=== PATIENT | female | born 1990 | race Caucasian/White ===

== ENCOUNTER 2018-01-25 20:48 | Emergency (ER) | payer OTHER ==
[~2018-01-25] VITALS: Ht 152.4 cm; Wt 63.5 kg
[2018-01-25 20:58] VITALS: BP 137/85
[2018-01-25] MEDS ORDERED: MEDROL4 M2 PO (21:50)
[2018-01-25] MEDS ORDERED: BACTRIM DS TAB1 EACH PO (21:50)
--- NOTE | 2018-01-25 21:52 | ED GENERAL ADULT ---
History of Present Illness General Chief Complaint: Animal/Insect Bite Stated Complaint: "STUNG BY HORNETS YESTERDAY.FEELS WORSE" PER PT Source: patient Exam Limitations: no limitations Vital Signs & Intake/Output Vital Signs & Intake/Output Vital Signs Date Time Temp Pulse Resp B/P B/P Pulse O2 O2 Flow FiO2 Mean Ox Delivery Rate 01/25 2058 98.9 96 18 137/85 99 Room Air ED Intake and Output 01/26 0000 01/25 1200 Intake Total Output Total Balance Patient 140 lb Weight Weight Reported by Patient Measurement Method Allergies Coded Allergies: Penicillins (RASH PER PT 01/25/18) amoxicillin (RASH PER PT 01/25/18) cephalexin (RASH PER PT 01/25/18) Reconcile Medications Methylprednisolone. (Medrol) 4 MG TAB.DS.PK 1 DP PO AD swelling 6 on day 1 then reduce by one tablet daily until gone Sulfamethoxazole/Trimethoprim (Bactrim Ds Tablet) 800 MG-160 MG TABLET 1 TAB PO BID cellulitis Triage Note: PT FROM HOME C/O STUNG BY HORNETS YESTERDAY AROUND 1030. PT STATES SHE WAS STUNG BY 2 "BALD FACE" HORNETS YESTERDAY IN HER LEFT ELBOW. PT STATES SHE HAS ICED, ALOE AND BENADRYL WITHOUT RELIEF. PT STATES NOW IT IS BECOMING RED, WARM TO TOUCH, AND UNABLE TO BEND ELBOW. VSS. Triage Nurses Notes Reviewed? yes : No Patient currently breastfeeds: No HPI: Patient is a healthy 27-year-old female who suffered several stings from what she believes to have been hornets earlier today to her left elbow. She took diphenhydramine at home without improvement in her symptoms. She comes to the emergency department this evening because she has noted increased swelling and tenderness about her left elbow. She has no fever, chills, or other constitutional symptoms. Past History Travel History Traveled to [place] past 21 day No Medical History Any Pertinent Medical History? see below for history Psychiatric: insomnia, RECOVERY OPIATES Surgical History Surgical History: none Psychosocial History What is your primary language Wolof Tobacco Use: Current Daily Use Daily Tobacco Use Amount/Type: => 5 Cigarettes daily ETOH Use: occasional use Illicit Drug Use: denies illicit drug use Family History Hx Contributory? No Review of Systems Review of Systems Constitutional: Denies: chills, diaphoresis, fever, malaise, weakness. EENTM: Reports: no symptoms. Respiratory: Reports: no symptoms. Cardiovascular: Reports: no symptoms. GI: Reports: no symptoms. Genitourinary: Reports: no symptoms. Musculoskeletal: Reports: joint pain, joint swelling. Skin: Reports: see HPI, change in skin color, erythema, lesions, rash. Neurological/Psychological: Reports: no symptoms. Hematologic/Endocrine: Reports: no symptoms. Immunologic/Allergic: Reports: no symptoms. All Other Systems: Reviewed and Negative Physical Exam Physical Exam General Appearance: well developed/nourished Comments: HEENT: Inspection of the head reveals a normocephalic cranium with no signs of trauma. Ophtho: Extraocular muscles are intact. The sclera are noninjected, and there is no obvious discharge. Neck: No signs of trauma or asymmetry to the neck. Respiratory: The patient exhibits no signs of labored breathing. Cardiac: Non-tachycardic. GI: No gross abdominal distention. : Deferred Extremities: Focused examination of the left upper extremity reveals erythema over the left elbow with edema and tenderness. There are small lesions at the sites of her reported bites, but no cayetano indication of intra-articular infection. Neuro: The patient is oriented to person, place, time, and situation, with no obvious focal motor deficits. Cranial nerves II through XII are intact, and gait is normal. Behavioral: Calm and cooperative Dermatologic: Dermatologic examination reveals no obvious rashes or exanthems. Core Measures ACS in differential dx? No CVA/TIA Diagnosis: No Sepsis Present: No Sepsis Focused Exam Completed? No Progress Differential Diagnoses I considered the following diagnoses in my evaluation of the patient: Allergic reaction, cellulitis, anaphylaxis Plan of Care: Patient presented with multiple Hymenoptera stings to her left elbow. Unclear as to what type of insect it was but she believes it was a hornet. Nevertheless she does not have a known bee sting allergy, but after the multiple stings developed significant swelling around the left elbow. There does not appear to be an intra-articular infection, but a superimposed cellulitis is possible. I prescribed a Medrol Dosepak and Keflex, with plans to follow-up at her PCPs office. Alternatively, she is to return to the emergency department immediately for any streaking redness, fever, or other worsening symptoms or septic vital signs. Initial ED EKG: none Departure Departure Time of Disposition: 2147 Disposition: HOME OR SELF CARE Condition: Stable Clinical Impression Primary Impression: Insect bite Qualifiers: Encounter type: initial encounter Qualified Code: W57.XXXA - Bitten or stung by nonvenomous insect and other nonvenomous arthropods, initial encounter Referrals: Unknown (PCP) Additional Instructions: Please use the steroid and antibiotic we prescribed to your pharmacy for the next several days, and follow up with your primary doctor for a reassessment in the office at the end of this week. If her symptoms get worse, or if you develop streaking redness or a fever, please return to the emergency department immediately for reassessment. Departure Forms: Customer Survey General Discharge Information Prescriptions: Current Visit Scripts Methylprednisolone. (Medrol) 1 DP PO AD #1 DP 6 on day 1 then reduce by one tablet daily until gone Sulfamethoxazole/Trimethoprim (Bactrim Ds Tablet) 1 TAB PO BID #14 TAB Critical Care Note Critical Care Note Critical Care Time: non-applicable
== END 2018-01-25 22:12 ==
LOC: ERH 20:48
DX: T63.441A Toxic effect of venom of bees, accidental (unintentional), initial encounter (principal)